=== PATIENT | female | born 1990 | race Caucasian/White ===

== ENCOUNTER 2019-06-02 13:59 | Emergency (ER) | payer BC ==
[2019-06-02] MEDS ORDERED: ONDANSETRON 4 MG/2 ML VIAL ONE (14:50)
[2019-06-02] MEDS ORDERED: MORPHINE 4 MG/ML SYR ONE (14:50)
[2019-06-02] MEDS ORDERED: NA CHLORIDE 0.9% 1,000 ML ONE (14:51)
[2019-06-02 15:26] LABS: Absolute Lymphocytes (CBC) 2.6 K/uL (0.7-4.9); Basophils % 0.6 % (0-1.3); Hematocrit 36.4 % (36.0-45.0); Lymphocytes % 27.6 % (15.3-44.8); MPV 8.3 fL (7.6-11.3)
[2019-06-02 15:30] LABS: Albumin 3.9 g/dL (3.4-5.0); Bilirubin Direct 0.1 mg/dL (0-0.2); Bilirubin Total 0.3 mg/dL (0.2-1.0); Protein, Total 7.3 g/dL (6.4-8.2)
[2019-06-02 15:48] LABS: Urine Blood NEGATIVE (NEG); Urine Glucose NEGATIVE (NEG); Urine Protein NEGATIVE (NEG); Urine Specific Gravity 1.015 (1.005-1.030)
--- NOTE | 2019-06-02 16:06 | RAD REPORT ---
EXAM DESCRIPTION: CT - Abdomen Pelvis W Contrast - 06/02/2019 3:46 pm CLINICAL HISTORY: ABD PAIN, left lower quadrant pain COMPARISON: CT February 2013 TECHNIQUE: Biphasic, helical CT imaging of the abdomen and pelvis was performed following 100 ml non -ionic IV contrast. Oral contrast was given. All CT scans are performed using dose optimization technique as appropriate and may include automated exposure control or mA/KV adjustment according to patient size. FINDINGS: No suspicious findings in the lung bases. The liver, spleen, and pancreas show no suspicious findings. Gallbladder and biliary tree are also wi thout suspicious finding. Symmetric renal function is seen with no hydronephrosis or suspicious renal mass. No pyelonephritis o r acute parenchymal process. No bladder abnormalities. No adrenal abnormality. Uterus and ovaries shey w no suspicious findings. No dilated bowel loops or bowel wall thickening. No appendicitis findings. No free air, free fluid or inflammatory stranding. No hernia, mass or bulky lymphadenopathy. No suspicious bony findings. IMPRESSION: Contrast enhanced CT abdomen and pelvis showing no significant or suspicious finding. No significant or suspicious change from the prior study.
--- NOTE | 2019-06-02 16:44 | EDPHYS ---
Physician Documentation [facility] Name: Roz Ny Age: 28 yrs Sex: Female : 1990 Arrival Date: 06/02/2019 Time: 14:04 Bed 7 Private MD: MIGUELINA DIAZ ED Physician Tyrone Delgado HPI: 06/02 15:59 This 28 yrs old Female presents to ER via Ambulatory with complaints of pm1 Pelvic Pain, Nausea/Vomiting, Back Pain. 15:59 The patient presents with abdominal pain in the left lower quadrant. Onset: The pm1 symptoms/episode began/occurred 3 week(s) ago, and became worse today. The symptoms do not radiate. Associated signs and symptoms: Pertinent positives: nausea and vomiting, back pain present with moving both arms, Pertinent negatives: constipation, diarrhea, dysuria, fever. Modifying factors: The symptoms are alleviated by nothing, the symptoms are aggravated by touching the area, LLQ area. Severity of pain: in the emergency department the pain is actually worse. The patient has not experienced similar symptoms in the past. The patient has been recently seen by a physician: Dr. Diaz 3 day(s) ago, with similar presenting complaints. 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 - Social history:: Smoking status: Patient/guardian denies using tobacco. - Ebola Screening: : No symptoms or risks identified at this time. ROS: 15:59 Constitutional: Negative for fever, chills, and weight loss, Eyes: Negative for injury, pm1 pain, redness, and discharge, ENT: Negative for injury, pain, and discharge, Neck: Negative for injury, pain, and swelling, Cardiovascular: Negative for chest pain, palpitations, and edema, Respiratory: Negative for shortness of breath, cough, wheezing, and pleuritic chest pain. 15:59 Back: Negative for injury and pain, : Negative for injury, bleeding, discharge, and swelling, MS/Extremity: Negative for injury and deformity, Skin: Negative for injury, rash, and discoloration, Neuro: Negative for headache, weakness, numbness, tingling, and seizure. 15:59 Abdomen/GI: Positive for abdominal pain, nausea and vomiting, of the left lower quadrant, Negative for diarrhea, constipation. Exam: 15:59 Constitutional: This is a well developed, well nourished patient who is awake, alert, pm1 and in no acute distress. Head/Face: Normocephalic, atraumatic. Eyes: Pupils equal round and reactive to light, extra-ocular motions intact. Lids and lashes normal. Conjunctiva and sclera are non-icteric and not injected. Cornea within normal limits. Periorbital areas with no swelling, redness, or edema. ENT: Nares patent. No nasal discharge, no septal abnormalities noted. Tympanic membranes are normal and external auditory canals are clear. Oropharynx with no redness, swelling, or masses, exudates, or evidence of obstruction, uvula midline. Mucous membranes moist. Neck: Trachea midline, no thyromegaly or masses palpated, and no cervical lymphadenopathy. Supple, full range of motion without nuchal rigidity, or vertebral point tenderness. No Meningismus. Chest/axilla: Normal chest wall appearance and motion. Nontender with no deformity. No lesions are appreciated. Cardiovascular: Regular rate and rhythm with a normal S1 and S2. No gallops, murmurs, or rubs. Normal PMI, no JVD. No pulse deficits. Respiratory: Lungs have equal breath sounds bilaterally, clear to auscultation and percussion. No rales, rhonchi or wheezes noted. No increased work of breathing, no retractions or nasal flaring. 15:59 Skin: Warm, dry with normal turgor. Normal color with no rashes, no lesions, and no evidence of cellulitis. MS/ Extremity: Pulses equal, no cyanosis. Neurovascular intact. Full, normal range of motion. 15:59 Abdomen/GI: Inspection: obese Bowel sounds: normal, Palpation: soft, mild abdominal tenderness, in the left lower quadrant, mass, is not appreciated, rebound tenderness, is not appreciated. 15:59 Back: normal spinal alignment noted, muscle spasm, is appreciated in the left scapular area and right scapular area. 15:59 Neuro: Orientation: is normal, Motor: is normal, moves all fours, Gait: is steady, at a normal pace, without difficulty. Vital Signs: 14:10 BP 119 / 66; Pulse 94; Resp 16; Temp 97.1; Pulse Ox 100% on R/A; Weight 96.62 kg; la1 Height 5 ft. 1 in. (154.94 cm); 15:00 BP 121 / 75; Pulse 92; Resp 16; Pulse Ox 100% on R/A; rv 15:30 BP 113 / 70; Pulse 79; Resp 15; Pulse Ox 100% on R/A; rv 16:50 BP 118 / 75; Pulse 77; Resp 17; Pulse Ox 100% on R/A; rv 14:10 Body Mass Index 40.25 (96.62 kg, 154.94 cm) la1 MDM: 14:36 Patient medically screened. pm1 15:59 Data reviewed: vital signs. Data interpreted: Pulse oximetry: on room air is 100 %. pm1 Interpretation: normal. 16:43 Counseling: I had a detailed discussion with the patient and/or guardian regarding: the pm1 historical points, exam findings, and any diagnostic results supporting the discharge/admit diagnosis, lab results, radiology results, the need for outpatient follow up, to return to the emergency department if symptoms worsen or persist or if there are any questions or concerns that arise at home. 06/02 14:25 Order name: Urine Dipstick--Ancillary (enter results); Complete Time: 15:55 bd 06/02 14:25 Order name: Urine --Ancillary (enter results); Complete Time: 15:55 bd 06/02 14:44 Order name: Basic Metabolic Panel; Complete Time: 15:55 pm1 06/02 14:44 Order name: CBC with Diff; Complete Time: 15:55 pm1 06/02 14:44 Order name: Creatinine for Radiology; Complete Time: 15:55 pm1 06/02 14:44 Order name: Hepatic Function; Complete Time: 15:55 pm1 06/02 14:44 Order name: Lipase; Complete Time: 15:55 pm1 06/02 14:44 Order name: IV Saline Lock; Complete Time: 14:57 pm1 06/02 14:44 Order name: Labs collected and sent; Complete Time: 14:57 pm1 06/02 14:44 Order name: CT Abd/Pelvis - IV Contrast Only; Complete Time: 16:14 pm1 Administered Medications: 14:56 Drug: morphine 4 mg {Note: rass 0.} Route: IVP; Site: right antecubital; rv 16:51 Follow up: Response: No adverse reaction; Marked relief of symptoms; Pain is decreased; rv RASS: Alert and Calm (0) 14:56 Drug: Zofran 4 mg Route: IVP; Site: right antecubital; rv 16:51 Follow up: Response: No adverse reaction; Marked relief of symptoms; Nausea is decreasedrv 14:57 Drug: NS 0.9% 1000 ml Route: IV; Rate: 1000 ml; Site: right antecubital; rv 16:51 Follow up: IV Status: Completed infusion; IV Intake: 1000ml rv Disposition: 17:47 Co-signature as Attending Physician, Tyrone Delgado MD. ma2 Disposition: 06/02/19 16:43 Discharged to Home. Impression: Unspecified abdominal pain. - Condition is Stable. - Discharge Instructions: Abdominal Pain, Adult. - Prescriptions for Tylenol- Codeine #3 300-30 mg Oral Tablet - take 2 tablets by ORAL route every 6 hours As needed; 20 tablet. Zofran 4 mg Oral Tablet - take 1 tablet by ORAL route every 12 hours As needed; 20 tablet. - Medication Reconciliation Form, Thank You Letter, Antibiotic Education, Prescription Opioid Use form. - Follow up: MIGUELINA DIAZ; When: 2 - 3 days; Reason: Recheck today's complaints, Continuance of care, Re-evaluation by your physician. - Problem is new. - Symptoms have improved. Signatures: Dispatcher [employer] EDAleks Gardner RN RN la1 Irineo Wyatt, MOLECULAR PHYSICIST MOLECULAR PHYSICIST pm1 Tyrone Delgado MD MD ma2 Boy Baltazar RN RN rv Corrections: (The following items were deleted from the chart) 16:43 16:43 06/02/2019 16:43 Discharged to Home. Impression: Abdominal and pelvic pain; pm1 Unspecified abdominal pain. Condition is Stable. Forms are Medication Reconciliation Form, Thank You Letter, Antibiotic Education, Prescription Opioid Use. Follow up: MIGUELINA DIAZ; When: 2 - 3 days; Reason: Recheck today's complaints, Continuance of care, Re-evaluation by your physician. Problem is new. Symptoms have improved. pm1 16:51 16:43 06/02/2019 16:43 Discharged to Home. Impression: Unspecified abdominal pain. rv Condition is Stable. Forms are Medication Reconciliation Form, Thank You Letter, Antibiotic Education, Prescription Opioid Use. Follow up: MIGUELINA DIAZ; When: 2 - 3 days; Reason: Recheck today's complaints, Continuance of care, Re-evaluation by your physician. Problem is new. Symptoms have improved. pm1
--- NOTE | 2019-06-02 16:44 | ER ---
Nurse's Notes [facility] Name: Roz Ny Age: 28 yrs Sex: Female : 1990 Arrival Date: 06/02/2019 Time: 14:04 Bed 7 Private MD: MIGUELINA DIAZ Diagnosis: Unspecified abdominal pain Presentation: 06/02 14:09 Presenting complaint: Patient states: I have been having LLQ and now between shoulder la1 blades in back and vomiting. Transition of care: patient was not received from another setting of care. Onset of symptoms was June 02, 2019. Risk Assessment: Do you want to hurt yourself or someone else? Patient reports no desire to harm self or others. Initial Sepsis Screen: Does the patient meet any 2 criteria? No. Patient's initial sepsis screen is negative. Does the patient have a suspected source of infection? No. Patient's initial sepsis screen is negative. Care prior to arrival: None. 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 - Social history:: Smoking status: Patient/guardian denies using tobacco. - Ebola Screening: : No symptoms or risks identified at this time. Screenin:37 Abuse screen: Denies threats or abuse. Denies injuries from another. Nutritional rv screening: No deficits noted. Tuberculosis screening: No symptoms or risk factors identified. Fall Risk None identified. Assessment: 14:36 General: Appears in no apparent distress. comfortable, Behavior is calm, cooperative. rv Pain: Complains of pain in low back area. Neuro: Level of Consciousness is awake, alert, obeys commands, Oriented to person, place, time, situation. Cardiovascular: Patient's skin is warm and dry. Respiratory: Airway is patent. GI: Abdomen is round non-distended, Reports nausea, vomiting. : No signs and/or symptoms were reported regarding the genitourinary system. EENT: No signs and/or symptoms were reported regarding the EENT system. Derm: Skin is intact. Musculoskeletal: No signs and/or symptoms reported regarding the musculoskeletal system. 15:55 Reassessment: Patient appears in no apparent distress at this time. Patient and/or rv family updated on plan of care and expected duration. Pain level reassessed. Patient is alert, oriented x 3, equal unlabored respirations, skin warm/dry/pink. patient taken to CT scan. 16:30 Reassessment: Patient appears in no apparent distress at this time. Patient and/or rv family updated on plan of care and expected duration. Pain level reassessed. Patient is alert, oriented x 3, equal unlabored respirations, skin warm/dry/pink. Patient states feeling better. Vital Signs: 14:10 BP 119 / 66; Pulse 94; Resp 16; Temp 97.1; Pulse Ox 100% on R/A; Weight 96.62 kg; la1 Height 5 ft. 1 in. (154.94 cm); 15:00 BP 121 / 75; Pulse 92; Resp 16; Pulse Ox 100% on R/A; rv 15:30 BP 113 / 70; Pulse 79; Resp 15; Pulse Ox 100% on R/A; rv 16:50 BP 118 / 75; Pulse 77; Resp 17; Pulse Ox 100% on R/A; rv 14:10 Body Mass Index 40.25 (96.62 kg, 154.94 cm) la1 ED Course: 14:04 Patient arrived in ED. am2 14:05 MIGUELINA DIAZ is Private Physician. am2 14:10 Triage completed. la1 14:10 Arm band placed on left wrist. la1 14:15 Boy Baltazar, JARED is Primary Nurse. rv 14:25 Irineo Wyatt NP is PHCP. pm1 14:25 Tyrone Delgado MD is Attending Physician. pm1 14:27 Urine collected: clean catch specimen, clear, ana colored. jb1 14:38 Patient has correct armband on for positive identification. Bed in low position. Call rv light in reach. Side rails up X 1. Adult w/ patient. Pulse ox on. NIBP on. 14:39 Inserted saline lock: 22 gauge in right antecubital area, using aseptic technique. rv Blood collected. 14:59 Radiology exam delayed due to lab results not completed at this time. (BUN/Creatinine). vm2 15:47 CT Abd/Pelvis - IV Contrast Only In Process Unspecified. EDMS 16:43 MIGUELINA DIAZ is Referral Physician. pm1 16:50 No provider procedures requiring assistance completed. IV discontinued, intact, rv bleeding controlled, No redness/swelling at site. Administered Medications: 14:56 Drug: morphine 4 mg {Note: rass 0.} Route: IVP; Site: right antecubital; rv 16:51 Follow up: Response: No adverse reaction; Marked relief of symptoms; Pain is decreased; rv RASS: Alert and Calm (0) 14:56 Drug: Zofran 4 mg Route: IVP; Site: right antecubital; rv 16:51 Follow up: Response: No adverse reaction; Marked relief of symptoms; Nausea is decreasedrv 14:57 Drug: NS 0.9% 1000 ml Route: IV; Rate: 1000 ml; Site: right antecubital; rv 16:51 Follow up: IV Status: Completed infusion; IV Intake: 1000ml rv Intake: 16:51 IV: 1000ml; Total: 1000ml. rv Outcome: 16:43 Discharge ordered by MD. pm1 16:50 Discharged to home ambulatory, with family. rv 16:50 Condition: improved 16:50 Discharge instructions given to patient, Instructed on discharge instructions, follow up and referral plans. medication usage, Demonstrated understanding of instructions, follow-up care, medications, Prescriptions given X 3. 16:51 Patient left the ED. rv Signatures: Dispatcher [employer] EDMS John Gamez jb1 Aleks Nguyen, JARED RN la1 Irineo Wyatt, [employer] SALES LEADER pm1 Roz Covington amMarianne Austin 2 Boy Baltazar RN RN rv
[2019-06-02 17:17] VITALS: TEMP 97.1; O2SAT 100
[2019-06-02 17:20] VITALS: BP 118/75
== END 2019-06-02 16:51 | disposition home or self-care (01) ==
LOC: ER 13:59
DX: R10.32 Left lower quadrant pain (principal)
CPT/HCPCS: 96361; 85025; 80048; 36415; 81025; 80076; 81003; 83690; 74177; 96375; 96374; 99284; Q9967; J7030; J2405

== ENCOUNTER 2020-02-03 21:33 | Emergency (ER) | payer BC ==
--- OUTSIDE RECORDS SUMMARY | 2020-02-03 21:35 | XMS REPORT | Continuity of Care Document ---
:1990 Author Organization [employer] Care Team Providers Name Role Phone [employer] Unavailable Un available Problems Problem Status Onset Classification Date Comments Sourc e Date Reported Personal history Active Diagnosis 03/30/2019 [facility] [place] dependence Other obesity Active Diagnosis 03/30/2019 [facility] [place] Major depressive Active Diagnosis 03/30/2019 [facility] disorder, single [facility] [place] episode, unspecified Other general Active Diagnosis 03/30/2019 [facility] symptoms and [facility] [place] signs Fatigue Active Diagnosis 03/30/2019 [facility] [place] Bilateral Active Diagnosis 03/30/2019 [facility] headaches [facility] [place] Pain in joint Active Diagnosis 03/30/2019 [facility] involving [facility] [place] multiple sites Elevated Active Diagnosis 03/30/2019 [facility] sedimentation [facility] [place] rate Medications Medication Details Route Status Patient Ordering Order Source Instructions Provider Date Valacyclovir 1 tablet Orally Active 500 MG Orally Vo Rheu m HCl Once a day [facility] [place] BusPIRone HCl 1 tablet Orally Active 5 MG Orally Vo Rheum Three times a [facility] [place] Allergies, Adverse Reactions, Alerts Substance Category Reaction Severity Reaction Status Date Comments S ource type Reported N.K.D.A. Adverse Info Not Adverse Active Rheu m Reaction Available Reaction 9 [facility] [place] Immunizations No Data Provided for This Section Results No Data Provided for This Section Pathology Reports No Data Provided for This Section Diagnostic Reports No Data Provided for This Section Consultation Notes No Data Provided for This Section Discharge Summaries No Data Provided for This Section History and Physicals No Data Provided for This Section Vital Signs Vital Sign Value Date Comments Source Weight 203.6 03/06/2019 [facility] Height 61 03/06/2019 [facility] Heart Rate 82 03/06/2019 [facility] Diastolic (mm Hg) 79 03/06/2019 [facility] [place] Systolic (mm Hg) 119 03/06/2019 [facility] [place] Encounters No Data Provided for This Section Procedures No Data Provided for This Section Assessment and Plan No Data Provided for This Section Plan of Care No Data Provided for This Section Social History No Data Provided for This Section Family History No Data Provided for This Section Advance Directives No Data Provided for This Section Functional Status No Data Provided for This Section
--- OUTSIDE RECORDS SUMMARY | 2020-02-03 21:36 | XMS REPORT | Continuity of Care Document ---
:[address] [facility] t Address [address] [place] [address] Care Team Providers Name Role Phone Unavailable Unavailable Unavailable Problems Condition Condition Condition Status Onset Resolution Last Treating Co mments Source Name Details Category Date Date Treatment Clinician Date Personal Diagnosis Active 2019-03-30 M emoria history of 02:46:55 l nicotine Personal Herm glenna dependence history of nicotine dependence Active Diagnosis 03/30/2019 [facility] [place] Other Diagnosis Active 2019-03-30 Mem oria obesity 02:46:55 l Other Reji obesity Active Diagnosis 03/30/2019 [facility] [place] Major Diagnosis Active 2019-03-30 Mem oria depressive 02:46:55 l disorder, Major Jose Raul n single depressive episode, disorder, unspecifie single d episode, unspecifie d Active Diagnosis 03/30/2019 [facility] [place] Other Diagnosis Active 2019-03-30 Mem oria general 02:46:55 l symptoms Other [place] and signs general symptoms and signs Active Diagnosis 03/30/2019 [facility] [place] Fatigue Diagnosis Active 2019-03-30 Me moria 02:46:55 l Fatigue [place] Active Diagnosis 03/30/2019 [facility] [place] Bilateral Diagnosis Active 2019-03-30 Memoria headaches 02:46:55 l Reji Bilateral headaches Active Diagnosis 03/30/2019 [facility] [place] Pain in Diagnosis Active 2019-03-30 Me moria joint 02:46:55 l involving Pain in Herm glenna multiple joint sites involving multiple sites Active Diagnosis 03/30/2019 [facility] [place] Elevated Diagnosis Active 2019-03-30 M emoria sedimentat 02:46:55 l ion rate Elevated Herm glenna sedimentat ion rate Active Diagnosis 03/30/2019 [facility] [place] Allergies, Adverse Reactions, Alerts Allergy Allergy Status Severity Reaction(s) Onset Inactive Treating Comm ents Source Name Type Date Date Clinician N.K.D.A. N.K.D.A. Active Info Not Carroll ben Available 12 l 00:00: Reji 00 Medications Ordered Filled Start Stop Current Ordering Indication Dosage Frequency Signature Comments Components Source Medication Medication Date Date Medication? Clinician (SIG) Name Name Valacyclovi Yes Colleen 1 tablet Memoria r HCl 8-05 Vo l 02:46: [place] 55 BusPIRone Yes Colleen 1 tablet Memoria HCl 8-05 Vo l 02:46: [place] 55 Vital Signs Vital Name Observation Time Observation Value Comments Source Weight 2019-03-06 14:30:00 [facility] Height 2019-03-06 14:30:00 [facility] Heart Rate 2019-03-06 14:30:00 [facility] Diastolic (mm Hg) 2019-03-06 14:30:00 [facility] Systolic (mm Hg) 2019-03-06 14:30:00 [place] rial [place] Procedures This patient has no known procedures. Encounters Start End Encounter Admission Attending Care Care Encounter Source Date/Time Date/Time Type Type Clinicians Facility Department ID 2019-03-06 2019-03-06 Outpatient [facility] - [facility] - [id number] [facility] 09:30:00 09:30:00 [facility] Results This patient has no known results.
[2020-02-03] MEDS ORDERED: MORPHINE 4 MG/ML SYR ONE (22:28)
[2020-02-03] MEDS ORDERED: ONDANSETRON 4 MG/2 ML VIAL ONE (22:28)
[2020-02-03 22:34] LABS: Absolute Lymphocytes (CBC) 2.6 K/uL (0.7-4.9); Basophils % 0.4 % (0-1.3); Hematocrit 38.7 % (36.0-45.0); MPV 8.2 fL (7.6-11.3); RBC Red Blood Cell Count 4.18 M/uL (3.86-4.86)
[2020-02-03 22:43] LABS: ALT/SGPT 24 U/L (12-78); AST/SGOT 15 U/L (15-37); Alkaline Phosphatase 159 U/L (45-117); BUN Blood Urea Nitrogen 12 mg/dL (7-18); Bicarbonate 27 mmol/L (21-32); Bilirubin Direct < 0.1 mg/dL (0-0.2); Bilirubin Total 0.1 mg/dL (0.2-1.0); Glucose Level 90 mg/dL (74-106); Lipase 96 U/L (73-393); Potassium 4.6 mmol/L (3.5-5.1); Protein, Total 7.6 g/dL (6.4-8.2); Sodium Level 140 mmol/L (136-145)
[2020-02-03 23:41] LABS: Urine Blood NEGATIVE (NEG); Urine Glucose NEGATIVE (NEG); Urine Protein NEGATIVE (NEG); Urine Specific Gravity 1.025 (1.005-1.030); Urine pH 7.5 (5.0-7.0)
--- NOTE | 2020-02-04 00:17 | ER ---
Nurse's Notes [facility] Name: Roz yN Age: 29 yrs Sex: Female : 1990 Arrival Date: 02/03/2020 Time: 21:38 Bed 5 Private MD: MIGUELINA DIAZ Diagnosis: Unspecified abdominal pain Presentation: 02/02 21:41 Chief complaint: Patient states: RUQ pain since 2 weeks. Today, radiating to the back. ca1 Reports N/V/diarrhea. Reports low grade fever today. Coronavirus screen: Proceed with normal triage. Patient denies a cough. Patient denies shortness of breath or difficulty breathing. Patient denies measured and/or subjective temperature greater than 100.4F prior to today's visit. Patient denies travel on a cruise ship or to a country the [facility] currently lists as an affected area. Patient denies contact with known and/or suspected case of COVID-19. Ebola Screen: Patient negative for fever greater than or equal to 101.5 degrees Fahrenheit, and additional compatible Ebola Virus Disease symptoms Patient denies exposure to infectious person. Patient denies travel to an Ebola-affected area in the 21 days before illness onset. No symptoms or risks identified at this time. Initial Sepsis Screen: Does the patient meet any 2 criteria? No. Patient's initial sepsis screen is negative. Does the patient have a suspected source of infection? No. Patient's initial sepsis screen is negative. Risk Assessment: Do you want to hurt yourself or someone else? Patient reports no desire to harm self or others. 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 - Social history:: Smoking status: Patient/guardian denies using tobacco, but has a distant history of tobacco abuse. Screenin:50 Abuse screen: Denies threats or abuse. Nutritional screening: No deficits noted. jb4 Tuberculosis screening: No symptoms or risk factors identified. Fall Risk None identified. Assessment: 22:14 General: Appears in no apparent distress. uncomfortable, Behavior is calm, cooperative, jb4 appropriate for age. Pain: Complains of pain in right upper quadrant Pain does not radiate. Pain currently is 8 out of 10 on a pain scale. Quality of pain is described as stabbing, Pain began 2 weeks ago Is continuous. Neuro: Level of Consciousness is awake, alert, obeys commands, Oriented to person, place, time, situation. Cardiovascular: Patient's skin is warm and dry. Respiratory: Airway is patent Respiratory effort is even, unlabored, Respiratory pattern is regular, symmetrical. GI: Abdomen is non-distended, obese, Bowel sounds present X 4 quads. Abd is soft and non tender X 4 quads. Reports diarrhea, nausea, vomiting, since 2 days ago. : No deficits noted. EENT: No signs and/or symptoms were reported regarding the EENT system. Derm: Skin is intact, Skin is pink, warm \T\ dry. Musculoskeletal: Circulation, motion, and sensation intact. Range of motion:. 23:03 Reassessment: Patient appears in no apparent distress at this time. Patient and/or jb4 family updated on plan of care and expected duration. Pain level reassessed. Patient is alert, oriented x 3, equal unlabored respirations, skin warm/dry/pink. PT reports pain has decreased to 2/10 Patient states feeling better. 02/03 00:05 Reassessment: Patient appears in no apparent distress at this time. Patient and/or jb4 family updated on plan of care and expected duration. Pain level reassessed. Patient is alert, oriented x 3, equal unlabored respirations, skin warm/dry/pink. PT reports a headache that is 4/10 denies wanting any medication to alleviate pain. 00:25 Reassessment: Patient appears in no apparent distress at this time. Patient and/or jb4 family updated on plan of care and expected duration. Pain level reassessed. Patient is alert, oriented x 3, equal unlabored respirations, skin warm/dry/pink. PT verbalized understanding of d/c and follow up instructions Denies questions or concerns. Ambulated out of ED with with steady gait. Vital Signs: 02/02 21:41 BP 127 / 74; Pulse 84; Resp 15 S; Temp 97.2(TE); Pulse Ox 100% on R/A; Weight 96.16 kg ca1 (R); Height 5 ft. 1 in. (154.94 cm) (R); Pain 7/10; 23:00 BP 127 / 66; Pulse 78; Resp 16; Pulse Ox 100% on R/A; Pain 2/10; jb4 02/03 00:05 BP 114 / 74; Pulse 72; Resp 16; Pulse Ox 99% on R/A; Pain 4/10; jb4 02/02 21:41 Body Mass Index 40.06 (96.16 kg, 154.94 cm) ca1 ED Course: 02/02 21:38 Patient arrived in ED. es 21:39 MIGUELINA DIAZ is Private Physician. es 21:43 Triage completed. ca1 21:44 Arm band placed on right wrist. ca1 21:45 Amarjit Osei PA is PHCP. jmm 21:45 Joseph Cohen MD is Attending Physician. jmm 21:46 Willie Voss, JARED is Primary Nurse. jb4 21:50 Patient has correct armband on for positive identification. Bed in low position. Call jb4 light in reach. Side rails up X 1. Pulse ox on. NIBP on. 22:15 Inserted saline lock: 20 gauge in left antecubital area, using aseptic technique. tt3 22:31 US Abdomen Limited In Process Unspecified. EDMS 23:00 CT Abd/Pelvis - IV Contrast Only In Process Unspecified. EDMS 02/03 00:17 Michelle Paredes MD is Referral Physician. jmm 00:17 Oliver Wilson MD is Referral Physician. [facility] 00:25 No provider procedures requiring assistance completed. IV discontinued, intact, jb4 bleeding controlled, No redness/swelling at site. Pressure dressing applied. Administered Medications: 02/02 22:28 Drug: Zofran (Ondansetron) 4 mg Route: IVP; Site: left antecubital; jb4 23:04 Follow up: Response: No adverse reaction; Nausea is decreased jb4 22:30 Drug: morphine 4 mg {Note: Rass score 0.} Route: IVP; Site: left antecubital; jb4 23:06 Follow up: Response: No adverse reaction; Pain is decreased; RASS: Alert and Calm (0) [facility] Outcome: 02/03 00:17 Discharge ordered by MD. jmm 00:25 Discharged to home ambulatory, with family. jb4 00:25 Condition: stable 00:25 Discharge instructions given to patient, family, Instructed on discharge instructions, follow up and referral plans. medication usage, Demonstrated understanding of instructions, follow-up care, medications. 00:26 Patient left the ED. jb4 Signatures: Dispatcher [employer] EDAmarjit Miller PA PA jmm Salyer, Edna es Bryson, James, RN RN jb4 Cristina Ramos RN RN ca1 Jose Shepard tt3 Corrections: (The following items were deleted from the chart) 02/02 22:28 22:27 Inserted saline lock: 20 gauge in left antecubital area, using aseptic technique. tt3 tt3
--- NOTE | 2020-02-04 00:17 | EDPHYS ---
Physician Documentation [facility] Name: Roz Ny Age: 29 yrs Sex: Female : 1990 Arrival Date: 02/03/2020 Time: 21:38 Bed 5 Private MD: MIGUELINA DIAZ ED Physician Joseph Cohen HPI: 02/02 22:11 This 29 yrs old Female presents to ER via Ambulatory with complaints of jmm gaullbladder problem. 22:11 The patient presents with abdominal pain. Onset: The symptoms/episode began/occurred jmm gradually, 2 week(s) ago. The symptoms do not radiate. Associated signs and symptoms: Pertinent positives: nausea and vomiting, diarrhea, vomiting. The symptoms are described as achy. Modifying factors: The symptoms are alleviated by nothing, the symptoms are aggravated by food. The patient has not experienced similar symptoms in the past. The patient has not recently seen a physician. 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 - Social history:: Smoking status: Patient/guardian denies using tobacco, but has a distant history of tobacco abuse. ROS: 22:11 Constitutional: Negative for fever, chills, and weight loss, Cardiovascular: Negative jmm for chest pain, palpitations, and edema, Respiratory: Negative for shortness of breath, cough, wheezing, and pleuritic chest pain. 22:11 Abdomen/GI: Positive for abdominal pain, nausea and vomiting, diarrhea. 22:11 All other systems are negative. Exam: 22:11 Constitutional: This is a well developed, well nourished patient who is awake, alert, jmm and in no acute distress. Head/Face: atraumatic. Eyes: EOMI, no conjunctival erythema appreciated ENT: Moist Mucus Membranes Neck: Trachea midline, Supple Chest/axilla: Normal chest wall appearance and motion. Cardiovascular: Regular rate and rhythm. No edema appreciated Respiratory: Normal respirations, no respiratory distress appreciated 22:11 Back: Normal ROM Skin: General appearance color normal MS/ Extremity: Moves all extremities, no obvious deformities appreciated, no edema noted to the lower extremities Neuro: Awake and alert, normal gait Psych: Behavior is normal, Mood is normal, Patient is cooperative and pleasant 22:11 Abdomen/GI: Inspection: abdomen appears normal, Bowel sounds: normal, Palpation: soft, moderate abdominal tenderness, in the right upper quadrant and right lower quadrant. Vital Signs: 21:41 BP 127 / 74; Pulse 84; Resp 15 S; Temp 97.2(TE); Pulse Ox 100% on R/A; Weight 96.16 kg ca1 (R); Height 5 ft. 1 in. (154.94 cm) (R); Pain 7/10; 23:00 BP 127 / 66; Pulse 78; Resp 16; Pulse Ox 100% on R/A; Pain 2/10; jb4 02/03 00:05 BP 114 / 74; Pulse 72; Resp 16; Pulse Ox 99% on R/A; Pain 4/10; jb4 02/02 21:41 Body Mass Index 40.06 (96.16 kg, 154.94 cm) ca1 MDM: 02/02 22:01 Patient medically screened. [facility] 02/03 00:16 Data reviewed: vital signs, nurses notes. Counseling: I had a detailed discussion with [facility] the patient and/or guardian regarding: the historical points, exam findings, and any diagnostic results supporting the discharge/admit diagnosis, radiology results, the need for outpatient follow up, to return to the emergency department if symptoms worsen or persist or if there are any questions or concerns that arise at home. ED course: Patient is advised to follow up with gen surgery for further evaluation. Patient is otherwise given strict return precautions. Patient understood and agrees with the plan of care. . 02/02 21:46 Order name: Basic Metabolic Panel; Complete Time: 23:42 [facility] 02/02 21:46 Order name: CBC with Diff; Complete Time: 23:42 [facility] 02/02 21:46 Order name: Hepatic Function; Complete Time: 23:42 [facility] 02/02 21:46 Order name: Lipase; Complete Time: 23:42 [facility] 02/02 22:30 Order name: Urine Dipstick--Ancillary (enter results); Complete Time: 23:42 [facility] 02/02 22:30 Order name: Urine --Ancillary (enter results); Complete Time: 23:42 [facility] 02/02 21:46 Order name: IV Saline Lock; Complete Time: 22:14 [facility] 02/02 21:46 Order name: Labs collected and sent; Complete Time: 22:14 [facility] 02/02 21:46 Order name: US Abdomen Limited [facility] 02/02 21:46 Order name: Urine Dipstick-Ancillary (obtain specimen); Complete Time: 22:18 [facility] 02/02 22:18 Order name: CT Abd/Pelvis - IV Contrast Only [facility] 02/02 23:08 Order name: CREATININE WHOLE BLOOD; Complete Time: 23:42 [facility] 02/02 22:13 Order name: Urine Test (obtain specimen); Complete Time: 22:18 [facility] Administered Medications: 02/02 22:28 Drug: Zofran (Ondansetron) 4 mg Route: IVP; Site: left antecubital; [facility] 23:04 Follow up: Response: No adverse reaction; Nausea is decreased [facility] 22:30 Drug: morphine 4 mg {Note: Rass score 0.} Route: IVP; Site: left antecubital; [facility] 23:06 Follow up: Response: No adverse reaction; Pain is decreased; RASS: Alert and Calm (0) [facility] Disposition: 02/03 00:36 Co-signature as Attending Physician, Joseph Cohen MD. rn Disposition: 02/04/20 00:17 Discharged to Home. Impression: Unspecified abdominal pain. - Condition is Stable. - Discharge Instructions: Abdominal Pain, Adult. - Prescriptions for Zofran ODT 4 mg Oral tablet,disintegrating - place 1 tablet by TRANSLINGUAL route every 4-6 hours; 20 tablet. Bentyl 20 mg Oral Tablet - take 2 tablet by ORAL route every 6 hours As needed; 40 tablet. - Medication Reconciliation Form, Thank You Letter, Antibiotic Education, Prescription Opioid Use form. - Follow up: Michelle Paredes MD; When: 2 - 3 days; Reason: Recheck today's complaints, Continuance of care, Re-evaluation by your physician. Follow up: Oliver Wilson MD; When: 2 - 3 days; Reason: Recheck today's complaints, Continuance of care, Re-evaluation by your physician. Signatures: Dispatcher [employer] [facility] Amarjit Osei PA PA [facility] Joseph Cohen MD MD rn Bryson, James, RN RN jb4 Cristina Ramos RN RN ca1 Corrections: (The following items were deleted from the chart) 00:26 00:17 02/04/2020 00:17 Discharged to Home. Impression: Unspecified abdominal pain. jb4 Condition is Stable. Forms are Medication Reconciliation Form, Thank You Letter, Antibiotic Education, Prescription Opioid Use. Follow up: Michelle Paredes; When: 2 - 3 days; Reason: Recheck today's complaints, Continuance of care, Re-evaluation by your physician. Follow up: Oliver Wilson; When: 2 - 3 days; Reason: Recheck today's complaints, Continuance of care, Re-evaluation by your physician. [facility]
[2020-02-04 00:35] VITALS: TEMP 97.2
[2020-02-04 00:38] VITALS: BP 114/74; O2SAT 99
--- NOTE | 2020-02-04 07:16 | RAD REPORT ---
EXAM DESCRIPTION: US - Abdomen Exam Limited - 02/03/2020 10:31 pm CLINICAL HISTORY: ABD PAIN COMPARISON: Abdomen Pelvis W Contrast dated 06/02/2019 FINDINGS: No gallstones, sludge or other abnormalities within the gallbladder lumen. There is no wal l thickening or pericholecystic fluid. No common duct stone or biliary tree dilatation identified. Preliminary findings provided at the time of the study. IMPRESSION: Normal gallbladder and biliary tree ultrasound.
--- NOTE | 2020-02-04 19:34 | RAD REPORT ---
EXAM DESCRIPTION: CT - Abdomen Pelvis W Contrast - 02/04/2020 6:46 am CLINICAL HISTORY: Abdominal pain COMPARISON: 06/02/2019 TECHNIQUE: CT of the abdomen and pelvis performed following IV administration of iodinated contrast. FINDINGS: Lung Bases: The visualized lung bases are clear. Bones: No destructive bone lesions identified. Abdomen: Liver: The liver has normal size and density. No intrahepatic biliary dilatation. Gallbladder: No calcified gallstones. Spleen, Pancreas, and Adrenal Glands: The spleen, pancreas, and adrenal glands are unremarkable. Kidneys: No hydronephrosis or obstructing calculus. Vasculature: The aorta and IVC have normal caliber and position. The portal vein is patent. The pro ximal visceral and renal arteries are patent. Stomach: The stomach and duodenum have normal course. Other: No free intraperitoneal air. No free fluid or lymphadenopathy. Pelvis: Bladder: Urinary bladder is unremarkable. Bowel: No dilated loops of large or small bowel. Appendix: Normal appendix. Pelvis: Uterus is not enlarged. IMPRESSION: 1. No acute inflammatory or obstructive process identified. This exam was performed according to our departmental dose-optimization program, which includes autom ated exposure control, adjustment of the mA and/or kV according to patient size and/or use of iterati ve reconstruction technique. Electronically signed by: Cody Branham 02/03/2020 11:18 PM CDT Due to temporary technical issues with the PACS/Fluency reporting system, reports are being signed by the in house radiologist without review as a courtesy to ensure prompt reporting. The interpreting r adiologist is fully responsible for the content of the report.
== END 2020-02-04 00:26 | disposition home or self-care (01) ==
LOC: ER 21:33
DX: R10.9 Unspecified abdominal pain (principal)
CPT/HCPCS: 85025; 80048; 36415; 81025; 82565; 80076; 81003; 83690; 74177; 76705; 96375; 96374; 99284; Q9967; J2405